=== PATIENT | male | born 1995 | race Caucasian/White ===

== ENCOUNTER → 2016-12-26 | Outpatient (CLI) | payer OTHER ==
[~2016-12-26] MED LIST: GADOBUTROL 7.5 MMOL/7.5 ML VIAL ONE
== END | disposition home or self-care (01) ==
LOC: CFH 15:19
PROVIDERS: ATTEND Neurological Surgery
DX: D43.2 Neoplasm of uncertain behavior of brain, unspecified (principal); G93.89 Other specified disorders of brain
CPT/HCPCS: 70553; A9585

== ENCOUNTER → 2017-10-23 | Outpatient (CLI) | payer OTHER | END | disposition home or self-care (01) | LOC: CFH 09:01 | PROVIDERS: ATTEND Neurological Surgery | DX: G93.89 Other specified disorders of brain (principal); D33.2 Benign neoplasm of brain, unspecified; Z98.890 Other specified postprocedural states | CPT/HCPCS: 70553; A9585 ==

== ENCOUNTER 2018-12-06 11:24 | Outpatient (CLI) | payer OTHER ==
[2018-12-06] MEDS ORDERED: GADOBUTROL 7.5 MMOL/7.5 ML PFS ONE (11:30)
== END 2018-12-06 23:59 | disposition home or self-care (01) ==
LOC: CFH 11:24
PROVIDERS: ATTEND Neurological Surgery
DX: D33.2 Benign neoplasm of brain, unspecified (principal)
CPT/HCPCS: 70553; A9585